=== PATIENT | female | born 1985 | race Caucasian/White ===

== ENCOUNTER 2017-11-13 16:23 | Emergency (ER) | payer OTHER ==
[2017-11-13] MEDS ORDERED: NS 1,000 ML IV ONE (17:06)
--- NOTE | 2017-11-13 17:06 | EDPHY ---
H & P Stated Complaint: 8WKS PREG/NOW WITH BLEEDING/CRAMPING/HAS NOT BEEN TO DR Time Seen by Provider: 11/13/17 17:05 HPI/ROS: HPI: This is a 32-year-old female presents with Chief Complaint: 8WKS PREG/NOW WITH BLEEDING/CRAMPING/HAS NOT BEEN TO DR Location:vaginal Quality:bleeding Duration: 20 min prior to arrival Signs and Symptoms: no fever, no nausea, no vomiting, no hematemesis, no blood in stool, no abdominal bloating, no diarrhea, no back pain, no urinary symptoms , no vaginal discharge Timing: Sudden Severity: Moderate Context: Patient's G1, LMP 09/19/2017, positive [id number] test on 10/27/2017, has not established care with OBGYN presents with sudden onset of lower abdominal mild pelvic cramping approximately 30-45 minutes prior to arrival. Patient went to the bathroom and noted mild to moderate vaginal bleeding and noted large clots and 2 small embryos in the toilet. She believes that she has had miscarriage. She currently denies abdominal pain/abdominal cramping. + mild nausea. Patient denies any trauma/recent sexual intercourse. Her partner is at bedside and supportive. She believes her blood type is B- positive but she is not sure. Modifying Factors: None Comment: ROS: see HPI Constitutional: No fever, no chills, no weight loss Eyes: No blurred vision Respiratory: No shortness of breath, no cough Cardiovascular: No chest pain, no palpitations Gastrointestinal: + nausea, no vomiting, no diarrhea, no hematemesis, no blood in stool Genitourinary: No dysuria, no blood in urine Extremities: No myalgias, no edema Neurologic: No weakness, no numbness Skin: No rashes, no petechiae Hematologic: No bruising, no bleeding MEDICAL/SURGICAL/SOCIAL HISTORY: Medical history: Generally healthy. Does not take any regular medications. Surgical history: Denies Social history: CONSTITUTIONAL: Tearful, polite and cooperative, adult female, awake and alert , no obvious distress HEENT: Atraumatic and normocephalic, PERRL, EOMI. Tympanic membranes clear. Oropharynx clear, no exudate and moist pink mucosa. Airway patent. No lymphadenopathy. No meningismus. Cardiovascular: Normal S1/S2, regular rate, regular rhythm, without murmur rub or gallop. PULMONARY/CHEST: Symmetrical and nontender. Clear to auscultation bilaterally. Good air movement. No accessory muscle usage. ABDOMEN: Soft, nondistended, nontender, no rebound, no guarding, no peritoneal signs, no masses or organomegaly. No CVAT. EXTREMITIES: 2/2 pulses, strength 5/5, no deformities, no clubbing, no cyanosis or edema. NEUROLOGICAL: no focal neuro deficits. GCS 15. SKIN: Warm and dry, no erythema. no rash. Good capillary refill. Source: Patient, Family () Exam Limitations: No limitations - Personal History LMP (Females 10-55): Current Tetanus/Diphtheria Vaccine: Yes - Medical/Surgical History Hx Asthma: No Hx Chronic Respiratory Disease: No Hx Diabetes: No Hx Cardiac Disease: No Hx Renal Disease: No Hx Cirrhosis: No Hx Alcoholism: No Hx HIV/AIDS: No Hx Splenectomy or Spleen Trauma: No Other PMH: DENIES - Social History Smoking Status: Never smoked Constitutional: Initial Vital Signs Temperature (C) 36.4 C 11/13/17 16:32 Heart Rate 69 11/13/17 16:32 Respiratory Rate 18 11/13/17 16:32 Blood Pressure 127/78 H 11/13/17 16:32 O2 Sat (%) 99 11/13/17 16:32 O2 Delivery Mode Room Air Allergies/Adverse Reactions: No Known Allergies Allergy (Unverified 11/13/17 16:32) Home Medications: Medication Instructions Recorded Ondansetron Odt [Zofran Odt 4 mg 4 mg PO Q4 PRN #12 tab 11/13/17 (*)] Medical Decision Making - Diagnostics Imaging Results: Imaging Impressions Obstetrics Ultrasound 11/13/17 17:06 Impression: 1. Heterogeneous endometrial thickening up to 14 mm, without evidence of intrauterine . 2. Minimal left free fluid in the pelvis. 3. Right ovarian corpus luteum cyst, measuring 2.3 x 2 x 1.5 cm, without ovarian torsion or definite adnexal masses. 4. This may represent incomplete . An ectopic cannot be entirely excluded since no intrauterine is identified. However, no suspicious adnexal mass is noted. Recommend serum quantitative beta hCG follow up and correlation. Findings and recommendations discussed with Emergency Department Physician Addressograph Operator, Kriss Gamez PA-C, at 1821 hours, on November 13, 2017. Final report concurs with initial preliminary interpretation. ED Course/Re-evaluation: Labs, urinalysis, IV fluids, IV medications, OB ultrasound ordered It appears patient has had a spontaneous miscarriage in the 1st trimester. Given 1 L normal saline and IV Zofran. 1800: Labs reviewed and grossly unremarkable. 182: Called by radiology, Dr. Vee who advises no yolk sac or intrauterine identified. Endometrium measures 14 mm. Small 2.3 cm corpus luteum cyst. No signs of ovarian torsion/ectopic . After discussing ultrasound results, patient has adamantly declined any pelvic exam at this time. She defers to follow up with OBGYN. Serum HC Patient is comfortable and repeat abdominal exam is soft and nontender. OBGYN follow-up in 72 hr. This patient was seen under the supervision of my secondary supervising physician. I evaluated care for this patient independently. Discussed this patient with Dr. Yanes who did not see the patient. Patient's presentation, labs/imaging, treatment and plan of care were discussed with secondary supervising physician. Differential Diagnosis: Differential diagnosis includes but is not limited to spontaneous miscarriage, ectopic , retained products of conception, urinary tract infection, ruptured ovarian cyst. - Data Points Laboratory Results: Laboratory Results 11/13/17 17:15 11/13/17 17:15 11/13/17 11/13/17 11/13/17 17:15 17:15 17:15 WBC RBC Hgb Hct MCV MCH MCHC RDW Plt Count MPV Neut % (Auto) Lymph % (Auto) [place] % (Auto) Eos % (Auto) Baso % (Auto) Nucleat RBC Rel Count Absolute Neuts (auto) Absolute Lymphs (auto) Absolute Monos (auto) Absolute Eos (auto) Absolute Basos (auto) Absolute Nucleated RBC Immature Gran % Immature Gran # Sodium 140 mEq/L mEq/L (134-144) Potassium 3.8 mEq/L mEq/L (3.5-5.2) Chloride 103 mEq/L mEq/L (97-110) Carbon Dioxide 24 mEq/l mEq/l (22-31) Anion Gap 13 mEq/L mEq/L (8-16) BUN 17 mg/dL mg/dL (7-23) Creatinine 0.8 mg/dL mg/dL (0.6-1.0) Estimated GFR > 60 Glucose 103 mg/dL H mg/dL (70-100) Calcium 9.6 mg/dL mg/dL (8.5-10.4) Beta HCG, Qual POSITIVE Beta HCG, Quant 61044.00 mIU/mL H mIU/mL (0.00-4.83) Patient ABO/Rh O POSITIVE 11/13/17 17:15 WBC 9.02 10^3/uL 10^3/uL (3.80-9.50) RBC 4.80 10^6/uL 10^6/uL (4.18-5.33) Hgb 13.2 g/dL g/dL (12.6-16.3) Hct 40.2 % % (38.0-47.0) MCV 83.8 fL fL (81.5-99.8) MCH 27.5 pg L pg (27.9-34.1) MCHC 32.8 g/dL g/dL (32.4-36.7) RDW 13.5 % % (11.5-15.2) Plt Count 249 10^3/uL 10^3/uL (150-400) MPV 9.0 fL fL (8.7-11.7) Neut % (Auto) 66.0 % % (39.3-74.2) Lymph % (Auto) 22.2 % % (15.0-45.0) [place] % (Auto) 8.5 % % (4.5-13.0) Eos % (Auto) 2.4 % % (0.6-7.6) Baso % (Auto) 0.6 % % (0.3-1.7) Nucleat RBC Rel Count 0.0 % % (0.0-0.2) Absolute Neuts (auto) 5.95 10^3/uL 10^3/uL (1.70-6.50) Absolute Lymphs (auto) 2.00 10^3/uL 10^3/uL (1.00-3.00) Absolute Monos (auto) 0.77 10^3/uL 10^3/uL (0.30-0.80) Absolute Eos (auto) 0.22 10^3/uL 10^3/uL (0.03-0.40) Absolute Basos (auto) 0.05 10^3/uL 10^3/uL (0.02-0.10) Absolute Nucleated RBC 0.00 10^3/uL 10^3/uL (0-0.01) Immature Gran % 0.3 % % (0.0-1.1) Immature Gran # 0.03 10^3/uL 10^3/uL (0.00-0.10) Sodium Potassium Chloride Carbon Dioxide Anion Gap BUN Creatinine Estimated GFR Glucose Calcium Beta HCG, Qual Beta HCG, Quant Patient ABO/Rh Departure - Departure Disposition: Home, Routine, Self-Care Clinical Impression: Spontaneous miscarriage Condition: Good Instructions: Miscarriage (ED) Additional Instructions: Please observe pelvic rest x 2 weeks. Do not put anything in her vagina during this time. Do not engage in sexual intercourse during this time. Do not take a bath or go swimming for the next 2 weeks. Use sanitary napkins as needed for vaginal bleeding. If at any time you developed fever greater than 102, abdominal pain, heavy menstrual bleeding > 48 hours or intractable nausea and vomiting; return to the emergency room immediately. Please called OBGYN tomorrow for follow up appointment within the next 3-5 days. A repeat serum beta HCG will be taken at that time to ensure that it is decreasing. Today serum HCG was 15,323. Referrals: Marlyn Matthews MD [Medical Doctor] - As per Instructions Prescriptions: Ondansetron Odt [Zofran Odt 4 mg (*)] 4 mg PO Q4 PRN #12 tab PRN Reason: Nausea/Vomiting, Use 1st
[2017-11-13] MEDS ORDERED: ONDANSETRON 4 MG/2 ML VIAL IVP ONE (17:12)
[2017-11-13 17:25] LABS: PLATELET COUNT 249 10^3/uL (150-400)
[2017-11-13 19:31] VITALS: BP 129/81; PULSE 71; RESP 16; TEMP 98.1; O2SAT 96
== END 2017-11-13 19:30 | disposition home or self-care (01) ==
DX: O03.9 Complete or unspecified spontaneous abortion without complication (principal); Z3A.08 8 weeks gestation of pregnancy
CPT/HCPCS: J2405